=== PATIENT | male | born 1970 | race Caucasian/White ===

== ENCOUNTER 2018-02-11 08:32 | Emergency (ER) | payer SELFPAY ==
--- NOTE | 2018-02-11 08:34 | EDM.PDOC ---
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 Is normal Review of systems: As per history of present illness and below otherwise all systems reviewed and negative. Past medical history: As per history of present illness and as reviewed below otherwise noncontributory. Surgical history: As per history of present illness and as reviewed below otherwise noncontributory. Social history: No reported history of drug or alcohol abuse. Family history: As per history of present illness and as reviewed below otherwise noncontributory. Physical exam: General: Well developed, well nourished in NAD HEENT: Atraumatic, normocephalic, pupils reactive, negative for conormal, mucous membranes moist, throat clear, neck supple, nontender, trachea midline. Lungs: Clear to auscultation, breath sounds equal bilaterally, chest nontender. Heart: S1S2, regular, negative for clicks, rubs, or JVD. Abdomen: Soft, nondistended, nontender. Negative for masses or hepatosplenomegaly. Negative for costovertebral tenderness. Pelvis: Stable nontender. Genitourinary: Deferred. Rectal: Deferred. Extremities: Atraumatic, negative for cords or calf pain. Neurovascular unremarkable. Neuro: Awake, alert, oriented. Cranial nerves II through XII unremarkable. Cerebellum unremarkable. Motor and sensory unremarkable throughout. Exam nonfocal. Diagnostics: []Proparacaine used to anesthetize the eye and fluorescein used for staining under all the right punctate lesions noted Therapeutics: [] Impression: []Corneal abrasions left eye Plan: []Erythromycin ointment 3 times a day did Definitive disposition and diagnosis as appropriate pending reevaluation and review of above. left eye Pain Score (Numeric/FACES): 9 - Related Data Allergies Allergy/AdvReac Type Severity Reaction Status Date / Time No Known Allergies Allergy Verified 02/11/18 08:53 Home Meds: Home Meds Erythromycin Base [Erythromycin 0.5% Ophth Oint] 1 applic OP Q12H #1 tube [Rx] ED ROS GENERAL - Review of Systems Review Of Systems: See Below (See history of present illness) ED EXAM GENERAL W FULL EYE - Physical Exam Exam: See Below (See history of present illness) Course - Vital Signs Last Recorded V/S: Last Vital Signs Temp 97.2 F 02/11/18 08:53 Pulse 76 02/11/18 08:53 Resp 18 02/11/18 08:53 BP 145/86 H 02/11/18 08:53 Pulse Ox 97 02/11/18 08:53 - Orders/Labs/Meds Meds: Medications Discontinued Medications Generic Name Dose Route Start Last Admin Trade Name Freq PRN Reason Stop Dose Admin Proparacaine HCl 1 ml 02/11/18 08:53 Proparacaine 0.5% Ophth Soln EYEBOTH 02/11/18 08:54 NOW STA Departure - Departure Time of Disposition: 09:03 Disposition: Home, Self-Care 01 Condition: Good Clinical Impression: Injury of conjunctiva and corneal abrasion of left eye w/o FB Qualifiers: Encounter type: initial encounter Qualified Code(s): S05.02XA - Injury of conjunctiva and corneal abrasion without foreign body, left eye, initial encounter - Discharge Information Prescriptions: Erythromycin Base [Erythromycin 0.5% Ophth Oint] 1 applic OP Q12H #1 tube Additional Instructions: The following information is given to patients seen in the emergency department who are being discharged to home. This information is to outline your options for follow-up care. We provide all patients seen in our emergency department with a follow-up referral. The need for follow-up, as well as the timing and circumstances, are variable depending upon the specifics of your emergency department visit. If you don't have a primary care physician on staff, we will provide you with a referral. We always advise you to contact your personal physician following an emergency department visit to inform them of the circumstance of the visit and for follow-up with them and/or the need for any referrals to a consulting specialist. The emergency department will also refer you to a specialist when appropriate. This referral assures that you have the opportunity for follow-up care with a specialist. All of these measure are taken in an effort to provide you with optimal care, which includes your follow-up. Under all circumstances we always encourage you to contact your private physician who remains a resource for coordinating your care. When calling for follow-up care, please make the office aware that this follow-up is from your recent emergency room visit. If for any reason you are refused follow-up, please contact the [facility] Emergency Department at and asked to speak to the emergency department charge nurse. [address] [id number]
[2018-02-11] MEDS ORDERED: Proparacaine 0.5% Ophth Soln 15 ML Bottle EYEBOTH STA (08:53)
== END 2018-02-11 09:31 | disposition home or self-care (01) ==
LOC: MW.ED 08:32
DX: S05.02XA Injury of conjunctiva and corneal abrasion without foreign body, left eye, initial encounter (principal); W40.0XXA Explosion of blasting material, initial encounter
CPT/HCPCS: 99283

== ENCOUNTER 2022-04-17 09:26 | Emergency (ER) | payer MEDICAID ==
[2022-04-17] MEDS ORDERED: Indomethacin 25 MG Cap PO ONE (09:50)
== END 2022-04-17 10:30 | disposition home or self-care (01) ==
LOC: MW.ED 09:26
DX: M10.9 Gout, unspecified (principal); I10 Essential (primary) hypertension; Z86.16 Personal history of COVID-19; Z88.0 Allergy status to penicillin
CPT/HCPCS: 73630; 99283; A9270

== ENCOUNTER 2023-05-06 22:36 | Emergency (ER) | payer OTHER, MEDICAID | END 2023-05-07 01:33 | disposition home or self-care (01) | LOC: MW.ED 22:36 | DX: S49.91XA Unspecified injury of right shoulder and upper arm, initial encounter (principal); F17.210 Nicotine dependence, cigarettes, uncomplicated; I10 Essential (primary) hypertension; Z86.73 Personal history of transient ischemic attack (TIA), and cerebral infarction without residual deficits; Z79.899 Other long term (current) drug therapy; Z79.82 Long term (current) use of aspirin; Z88.0 Allergy status to penicillin; W01.0XXA Fall on same level from slipping, tripping and stumbling without subsequent striking against object, initial encounter | CPT/HCPCS: 73030-26-RT; 73030-RT; 73060-26-RT; 73060-RT; 99283 ==

== ENCOUNTER 2023-07-03 17:51 | Emergency (ER) | payer MEDICAID, OTHER ==
[2023-07-03 19:24] LABS: CORONAVIRUS COVID-19 NAA POSITIVE (NEGATIVE); INFLUENZA A NAA NEGATIVE (NEGATIVE); INFLUENZA B NAA NEGATIVE (NEGATIVE)
== END 2023-07-03 20:55 | disposition home or self-care (01) ==
LOC: MW.ED 17:51
DX: U07.1 COVID-19 (principal); I10 Essential (primary) hypertension; E11.9 Type 2 diabetes mellitus without complications; Z86.73 Personal history of transient ischemic attack (TIA), and cerebral infarction without residual deficits; Z88.0 Allergy status to penicillin; Z79.899 Other long term (current) drug therapy; Z79.82 Long term (current) use of aspirin
CPT/HCPCS: 0240U; 99283

== ENCOUNTER 2024-04-24 11:11 | Emergency (ER) | payer MEDICAID, OTHER ==
[2024-04-24] MEDS: Sodium Chloride 0.9% 1,000 ML IV STA (12:05)
[2024-04-24 12:07] LABS: BASOPHILS ABSOLUTE AUTO 0.03 K/uL (0.00-0.20); BASOPHILS PERCENT AUTO 0.5 % (0.0-1.0); EOSINOPHILS ABSOLUTE AUTO 0.06 K/uL (0.00-0.45); HEMATOCRIT 44.2 % (42.0-52.0); HEMOGLOBIN 15.7 g/dL (14.0-18.0); IMMATURE GRAN ABSOLUTE AUTO 0.01 K/uL (0.00-0.05); IMMATURE GRAN PERCENT AUTO 0.2 % (0.0-0.4); LYMPHOCYTES PERCENT AUTO 27.8 % (24.0-44.0); MEAN CORPUSCULAR HEMOGLOBIN 31.2 pg (28.0-32.0); MEAN CORPUSCULAR HGB CONC 35.5 g/dL (32.0-36.0); MEAN CORPUSCULAR VOLUME 87.9 fL (83.0-99.0); MEAN PLATELET VOLUME 10.3 fL (9.4-12.4); MONOCYTES PERCENT AUTO 5.2 % (0.0-8.0); NEUTROPHILS ABSOLUTE AUTO 3.75 K/uL (1.80-7.70); NEUTROPHILS PERCENT AUTO 65.3 % (41.0-71.0); PLATELET COUNT,PLT 168 K/uL (150-400); RED BLOOD CELL COUNT 5.03 M/uL (4.52-5.90); WHITE BLOOD CELL COUNT,WBC 5.75 K/uL (3.9-11.3)
[2024-04-24 12:08] LABS: BASE EXCESS VENOUS 2.2 (-2.0-3.0); PH,VENOUS 7.39 (7.31-7.41)
[2024-04-24 12:35] LABS: A/G RATIO 1.2 (0.9-1.6); ALBUMIN 3.9 g/dL (3.4-5.0); BILIRUBIN TOTAL 0.6 mg/dL (0.2-1.0); CALCIUM 9.8 mg/dL (8.5-10.1); CARBON DIOXIDE,CO2 29.9 mmol/L (21.0-32.0); EST CRCL DRUG DOSING (CG) 97.66 mL/min; POTASSIUM,K 4.1 mmol/L (3.5-5.1); PROTEIN TOTAL,TP 7.2 g/dL (6.4-8.2)
[2024-04-24 12:54] LABS: HEMOGLOBIN A1C 13.2 %
== END 2024-04-24 13:28 | disposition home or self-care (01) ==
LOC: MW.ED 11:11
DX: E11.65 Type 2 diabetes mellitus with hyperglycemia (principal); I10 Essential (primary) hypertension; E78.00 Pure hypercholesterolemia, unspecified; F17.210 Nicotine dependence, cigarettes, uncomplicated; Z79.82 Long term (current) use of aspirin; Z79.899 Other long term (current) drug therapy; Z79.84 Long term (current) use of oral hypoglycemic drugs; Z88.0 Allergy status to penicillin; Z75.8 Other problems related to medical facilities and other health care
CPT/HCPCS: 36415; 80053; 82009; 82803; 82947; 83036; 83735; 85025; 96360; 99284; J7030; 99283

== ENCOUNTER 2024-08-25 12:04 | Emergency (ER) | payer MEDICAID ==
[2024-08-25] MEDS ORDERED: Acetaminophen/oxyCODONE 325-5 MG Tab PO ONE (12:52)
[2024-08-25] MEDS ORDERED: Ondansetron 4 MG Tab.DIS PO ONE (12:52)
== END 2024-08-25 14:05 | disposition left against medical advice (07) ==
LOC: MW.ED 12:04
DX: Z53.21 Procedure and treatment not carried out due to patient leaving prior to being seen by health care provider (principal)

== ENCOUNTER 2024-08-26 11:12 | Emergency (ER) | payer MEDICAID ==
[2024-08-26] MEDS: Clindamycin HCl 150 MG Cap PO ONE (11:58)
[2024-08-26] MEDS: Acetaminophen/HYDROcodone 325-5 MG Tab PO ONE (12:48)
[2024-08-26] MEDS: Iopamidol 755 MG/ML 500 ML Multipack Bottle IVPUSH STA (14:22)
== END 2024-08-26 15:27 | disposition home or self-care (01) ==
LOC: MW.ED 11:12
DX: N61.0 Mastitis without abscess (principal); I10 Essential (primary) hypertension; E78.00 Pure hypercholesterolemia, unspecified; E11.9 Type 2 diabetes mellitus without complications; Z75.8 Other problems related to medical facilities and other health care; Z88.0 Allergy status to penicillin; Z79.82 Long term (current) use of aspirin; Z79.899 Other long term (current) drug therapy
CPT/HCPCS: 71260; 76642; 99283; A9270; Q9967

== ENCOUNTER 2024-09-15 09:38 | Day surgery (SDC) | payer MEDICAID ==
[2024-09-15] MEDS ORDERED: Sodium Chloride 0.9% 2.5 ML Syringe FLUSH PRN (10:32)
[2024-09-15] MEDS: Lisinopril 10 MG Tab PO STA (10:59)
[2024-09-15] MEDS: Sodium Chloride 0.9% 10 ML Syringe FLUSH PRN (11:00)
[2024-09-15 11:04] LABS: BASOPHILS ABSOLUTE AUTO 0.05 K/uL (0.00-0.20); BASOPHILS PERCENT AUTO 0.6 % (0.0-1.0); EOSINOPHILS ABSOLUTE AUTO 0.03 K/uL (0.00-0.45); EOSINOPHILS PERCENT AUTO 0.4 % (0.0-6.0); HEMATOCRIT 44.7 % (42.0-52.0); HEMOGLOBIN 15.5 g/dL (14.0-18.0); IMMATURE GRAN ABSOLUTE AUTO 0.02 K/uL (0.00-0.05); IMMATURE GRAN PERCENT AUTO 0.2 % (0.0-0.4); LYMPHOCYTES ABSOLUTE AUTO 1.99 K/uL (1.00-4.80); LYMPHOCYTES PERCENT AUTO 23.9 % (24.0-44.0); MEAN CORPUSCULAR HEMOGLOBIN 30.7 pg (28.0-32.0); MEAN CORPUSCULAR HGB CONC 34.7 g/dL (32.0-36.0); MEAN CORPUSCULAR VOLUME 88.5 fL (83.0-99.0); MEAN PLATELET VOLUME 9.6 fL (9.4-12.4); MONOCYTES ABSOLUTE AUTO 0.91 K/uL (0.00-0.80); MONOCYTES PERCENT AUTO 10.9 % (0.0-8.0); NEUTROPHILS ABSOLUTE AUTO 5.33 K/uL (1.80-7.70); PLATELET COUNT,PLT 246 K/uL (150-400); RED BLOOD CELL COUNT 5.05 M/uL (4.52-5.90); WHITE BLOOD CELL COUNT,WBC 8.33 K/uL (3.9-11.3)
[2024-09-15 11:24] LABS: HEMOGLOBIN A1C 7.5 %
[2024-09-15 11:44] LABS: A/G RATIO 1.1 (0.9-1.6); ALBUMIN 4.2 g/dL (3.4-5.0); CALCIUM 9.6 mg/dL (8.5-10.1); CARBON DIOXIDE,CO2 29.8 mmol/L (21.0-32.0); EST CRCL DRUG DOSING (CG) 97.66 mL/min; POTASSIUM,K 3.8 mmol/L (3.5-5.1)
[2024-09-15] MEDS: ceFAZolin 2 GM in Sodium Chloride 0.9% 50 ML IV STA (12:40)
[2024-09-15] MEDS ORDERED: fentaNYL 100 MCG/2 ML SDV ONE ×2 (12:52→13:46)
[2024-09-15] MEDS ORDERED: Lidocaine 2% 5 ML SDV ONE (12:52)
[2024-09-15] MEDS ORDERED: Propofol 200 MG/20 ML SDV ONE (12:52)
[2024-09-15] MEDS ORDERED: Ondansetron 4 MG/2 ML SDV ONE (12:52)
[2024-09-15] MEDS ORDERED: Midazolam 1 MG/ML 2 ML SDV ONE (12:52)
[2024-09-15] MEDS ORDERED: Bupivacaine 0.5% 30 ML SDV ONE (12:53)
[2024-09-15] MEDS ORDERED: Rocuronium 100 MG/10 ML MDV ONE (13:31)
[2024-09-15] MEDS ORDERED: Sugammadex Sodium 200 MG/2 ML VIAL IV ONE (13:31)
[2024-09-15] MEDS ORDERED: HYDROmorphone 1 MG/ML Syringe ONE (14:20)
[2024-09-15] MEDS ORDERED: Morphine 2 MG/ML SYRINGE IVPUSH PRN (14:50)
[2024-09-15] MEDS ORDERED: Phenylephrine HCl In 0.9% NaCl 1 MG/10 ML Syringe IVPUSH PRN (14:50)
[2024-09-15] MEDS ORDERED: Albuterol 0.083% 2.5 MG/3 ML Neb Soln NEB PRN (14:50)
[2024-09-15] MEDS ORDERED: Ondansetron 4 MG/2 ML SDV IVPUSH PRN (14:50)
[2024-09-15] MEDS ORDERED: Naloxone 0.4 MG/ML SDV IVPUSH PRN (14:50)
[2024-09-15] MEDS ORDERED: HYDROmorphone 1 MG/ML Syringe IVPUSH PRN (14:50)
[2024-09-15] MEDS ORDERED: fentaNYL 50 MCG/ML SDV IVPUSH PRN (14:50)
[2024-09-15] MEDS ORDERED: Metoclopramide 10 MG/2 ML SDV IVPUSH PRN (14:50)
[2024-09-15] MEDS: Acetaminophen/HYDROcodone 325-5 MG Tab PO ONE (15:54)
== END 2024-09-15 17:05 | disposition home or self-care (01) ==
LOC: MW.ED 09:38 → MW.SDS 13:08 → MW.MS 14:59 → MW.SDS 16:40
PROVIDERS: ATTEND Surgery
DX: N61.1 Abscess of the breast and nipple (principal); I10 Essential (primary) hypertension; E11.9 Type 2 diabetes mellitus without complications; E78.00 Pure hypercholesterolemia, unspecified; F17.210 Nicotine dependence, cigarettes, uncomplicated; Z88.0 Allergy status to penicillin; Z79.82 Long term (current) use of aspirin; Z79.84 Long term (current) use of oral hypoglycemic drugs; Z79.899 Other long term (current) drug therapy
CPT/HCPCS: 19020; 36415; 76641; 80053; 83036; 85025; 85652; 86140; 87070; 87075; 87205; 96365; 99284; A9270; J0131; J0665; J0690; J2250; J2704; J3010; J3490; J1171; J2405